=== PATIENT | male | born 1960 | race Caucasian/White ===

== ENCOUNTER 2019-03-24 07:44 | Outpatient (CLI) | payer MEDICAID ==
[~2019-03-24 07:44] MED LIST: BENZ0.5T35 PO; BENZ1TAB61 PO; DIVA-61 PO; HYDR-3245 PO; HYDROCODONE PO; OLAN15TA9 PO; TRAZ150T62 PO
[2019-03-24] MEDS ORDERED: symbicort INH (08:52)
[2019-03-24] MEDS ORDERED: CARI1.5C2 PO (08:52)
== END 2019-03-24 23:59 | disposition home or self-care (01) ==
LOC: STAR 07:44
PROVIDERS: ATTEND Orthopaedic Surgery
DX: Z01.818 Encounter for other preprocedural examination (principal); M75.41 Impingement syndrome of right shoulder; M75.21 Bicipital tendinitis, right shoulder; Z95.0 Presence of cardiac pacemaker; R94.31 Abnormal electrocardiogram [ECG] [EKG]
CPT/HCPCS: 71046; 93005

== ENCOUNTER 2019-04-01 10:46 | Day surgery (SDC) | payer MEDICAID ==
[~2019-04-01] VITALS: Ht 177.8 cm; Wt 66.1 kg
[~2019-04-01 10:46] MED LIST changes: +BUPIVACAINE/PF 0.5% ONE; +CARI1.5C2 PO; +LIDOCAINE/PF 1%-EPI 1:200K, 30 ML ONE; +symbicort INH
[2019-04-01] MEDS ORDERED: LACTATED RINGERS 1,000 ML IV SCH (10:57)
[2019-04-01] MEDS ORDERED: ACETAMINOPHEN 500 MG TABLET PO ONE (11:00)
[2019-04-01] MEDS ORDERED: GABAPENTIN 300 MG CAPSULE PO ONE (11:00)
[2019-04-01] MEDS ORDERED: OxyconTIN ER 10 MG TAB.ER PO ONE (11:00)
[2019-04-01] MEDS ORDERED: FENTANYL PF 100 MCG/2ML ONE (11:10)
[2019-04-01] MEDS ORDERED: MIDAZOLAM 1 MG/ML, 2ML ONE (11:10)
[2019-04-01 11:12] VITALS: BP 130/98
[2019-04-01] MEDS ORDERED: HYDROcodone/APAP 10/325 MG TABLET PO PRN (12:30)
[2019-04-01] MEDS ORDERED: ROCURONIUM 10 MG/ML,10ML ONE (12:33)
[2019-04-01] MEDS ORDERED: SUCCINYLCHOLINE 20 MG/ML, 10ML ONE (12:33)
[2019-04-01] MEDS ORDERED: PHENYLEPHRINE 10 MG/ML ONE (12:33)
[2019-04-01] MEDS ORDERED: EPINEPHRINE 1 MG/ML, 1ML ONE (13:27)
[2019-04-01] MEDS ORDERED: PROMETHAZINE 25 MG/ML, 1ML IV PRN (13:30)
[2019-04-01] MEDS ORDERED: MIDAZOLAM 1 MG/ML, 2ML IV PRN (13:30)
[2019-04-01] MEDS ORDERED: hydrALAzine 20 MG/ML, 1ML IV PRN (13:30)
[2019-04-01] MEDS ORDERED: FENTANYL PF 100 MCG/2ML IV PRN (13:30)
[2019-04-01] MEDS ORDERED: HYDROmorphone 2 MG/ML, 1ML IVPush PRN (13:30)
[2019-04-01] MEDS ORDERED: MEPERIDINE/PF 25MG/ML,1ML IVPush PRN (13:30)
[2019-04-01] MEDS ORDERED: METOPROLOL 1 MG/ML, 5ML IV PRN (13:30)
[2019-04-01] MEDS ORDERED: ALBUTEROL/IPRATROPIUM 2.5MG/0.5MG, 3 ML NPPB PRN (13:30)
[2019-04-01] MEDS ORDERED: OXYcodone 5 MG/5 ML ORAL.SOL UDC PO PRN (13:30)
[2019-04-01] MEDS ORDERED: LIDOCAINE-MPF 2% ,5ML ONE (13:55)
[2019-04-01] MEDS ORDERED: BUPIVACAINE/PF 0.5% ONE (13:55)
[2019-04-01] MEDS ORDERED: PROPOFOL 10 MG/ML, 20ML ONE (13:56)
[2019-04-01] MEDS ORDERED: DEXAMETHASONE 4 MG/ML, 1ML ONE (13:56)
[2019-04-01] MEDS ORDERED: ONDANSETRON 2MG/ML, 2ML ONE (13:56)
[2019-04-01] MEDS ORDERED: CEFAZOLIN 1,000 MG ONE (13:56)
[2019-04-01] MEDS ORDERED: SYMBICORT HOMEINH SCH (21:00)
[2019-04-02] MEDS ORDERED: CARIPRAZINE HCL HOMEMEDPO SCH (09:00)
== END 2019-04-01 16:10 | disposition home or self-care (01) ==
LOC: OUT 10:46
PROVIDERS: ATTEND Orthopaedic Surgery
DX: S46.011A Strain of muscle(s) and tendon(s) of the rotator cuff of right shoulder, initial encounter (principal); S43.431A Superior glenoid labrum lesion of right shoulder, initial encounter; S43.391A Subluxation of other parts of right shoulder girdle, initial encounter; M19.011 Primary osteoarthritis, right shoulder; M65.811 Other synovitis and tenosynovitis, right shoulder; M75.41 Impingement syndrome of right shoulder; M75.51 Bursitis of right shoulder; G47.30 Sleep apnea, unspecified; J44.9 Chronic obstructive pulmonary disease, unspecified; Z72.89 Other problems related to lifestyle; Z79.891 Long term (current) use of opiate analgesic; Z79.899 Other long term (current) drug therapy; Z88.8 Allergy status to other drugs, medicaments and biological substances; Z95.0 Presence of cardiac pacemaker; W01.0XXA Fall on same level from slipping, tripping and stumbling without subsequent striking against object, initial encounter; Y93.89 Activity, other specified; Y92.89 Other specified places as the place of occurrence of the external cause; Y99.8 Other external cause status
CPT/HCPCS: 29823; 29824; 29826; 29827; 29828; 64415; C1713; J0171; J0330; J0690; J1100; J2250; J2370; J2405; J2704; J3010; J3490; J7120